=== PATIENT | female | born 1975 | race Two or more races ===

== ENCOUNTER → 2020-02-15 10:46 | Outpatient (BNVA) | payer BC, SELFPAY | PROVIDERS: PCP Internal Medicine; Referring Provider Internal Medicine; Visit Provider Physician Assistant | DX: Z76.89 Persons encountering health services in other specified circumstances (principal) ==

== ENCOUNTER 2021-07-30 13:03 | Outpatient (REF) | payer OTHER, SELFPAY ==
[2021-07-30 13:23] LABS: MANUAL DIFF FLAG NO
[2021-07-30 14:07] LABS: Basophils Percent Auto 0.6 % (0-2); Eosinophils Absolute Auto 0.1 X10*3/uL (0.0-0.4); Eosinophils Percent Auto 2.6 % (0-4); Hemoglobin 12.2 g/dl (12.0-16.0); Imm Gran Abs Auto 0.02 X10*3/uL (0.00-0.03); Imm Gran Pct Auto 0.4 % (0.0-0.4); Lymphocytes Absolute Auto 1.4 X10*3/uL (1.2-4.9); Lymphocytes Percent Auto 25.3 % (20-40); Mean Corpuscular HGB Conc 33.9 g/dl (31.0-35.0); Mean Corpuscular Hemoglobin 34.3 pg (27.0-33.0); Mean Corpuscular Volume 101.1 fL (80.0-98.0); Mean Platelet Volume 10.5 fL (9.4-12.3); Monocytes Absolute Auto 0.5 X10*3/uL (0.1-1.2); Monocytes Percent Auto 9.2 % (2-11); Neutrophils Absolute Auto 3.3 x10*3/uL (2.0-8.3); Neutrophils Percent Auto 61.9 % (45-73); Platelet Count 307 X10*3/uL (160-400); Red Blood Count 3.56 X10*6/uL (4.20-5.50); Red Cell Distribution Width 12.8 % (11.0-16.0); White Blood Count 5.3 X10*3/uL (4.8-10.8)
[2021-07-30 14:09] LABS: Appearance Urine CLEAR; Color Urine YELLOW; Glucose Urine UA NEG (NEG); Leukocyte Esterase Urine NEG (NEG); Nitrite Urine NEG (NEG); PH 5.5 (5.0-8.0); Specific Gravity - Urine >= 1.030 (1.005-1.025); UACC Culture Trigger NO; Urine Blood TRACE (NEG); Urine Ketones NEG (NEG); Urine Protein NEG (NEG-TRACE)
[2021-07-30 14:17] LABS: Squamous Epithelial Cell Urine TRACE /LPF
[2021-07-30 14:18] LABS: Bacteria Urine TRACE /LPF; RBC Urine 0-2 /HPF (0); WBC Urine 0-2 /HPF (0-4)
[2021-07-30 14:24] LABS: Alanine Aminotransferase 13 U/L (0-31); Alkaline Phosphatase 61 U/L (39-117); Anion Gap 13 (12-20); Aspartate Amino Transferase 20 U/L (5-31); Bilirubin Total 0.3 mg/dL (0.0-1.0); Blood Urea Nitrogen 11 mg/dL (9-16); C Reactive Protein 0.25 mg/dL (< or = 0.50); Calcium 8.9 mg/dL (8.4-10.2); Carbon Dioxide 23 mmol/L (22-29); Chloride 107 mmol/L (96-108); Estimated Glomerular Filt Rate > 60; Glucose Random 96 mg/dL (60-115); Potassium 4.2 mmol/L (3.3-5.1); Sodium 139 mmol/L (135-145)
[2021-07-30 14:45] LABS: TSH reflex Free T4 0.93 uIU/mL (0.32-4.0); Vitamin D 25-OH Total 16.3 ng/mL (>30)
[2021-07-30 14:53] LABS: Erythrocyte Sedimentation Rate 25 MM/HR (0-20)
[2021-08-01 05:11] LABS: Herpes Simplex Type 2 IgG 5.37 index
[2021-08-02 00:26] LABS: TS Negative Control Passed; TS Panel A 0; TS Panel B 0; TS Positive Control Passed; TSpotTB Negative (Negative)
[2021-08-06 22:46] LABS: HSV 1 IgM IFA Negative (Negative); HSV 2 IgM IFA Negative (Negative)
== END 2021-07-30 13:04 | disposition home or self-care (01) ==
LOC: HO.LAB 13:03
PROVIDERS: PCP Internal Medicine; Visit Provider Internal Medicine
DX: Z01.84 Encounter for antibody response examination (principal); R29.898 Other symptoms and signs involving the musculoskeletal system; M79.7 Fibromyalgia; E55.9 Vitamin D deficiency, unspecified; B00.9 Herpesviral infection, unspecified
CPT/HCPCS: 36415; 80053; 81001; 82306; 82550; 84443; 85025; 85652; 86140; 86481; 86695; 86696

== ENCOUNTER → 2021-08-06 11:56 | Outpatient (RCR) | payer BC, SELFPAY | END | disposition home or self-care (01) | LOC: HO.PTCHIC 01-05 10:08 | PROVIDERS: PCP Internal Medicine; Visit Provider Internal Medicine | DX: M51.36 Other intervertebral disc degeneration, lumbar region (principal) | CPT/HCPCS: 97110; 97140; 97161; 97530 ==

== ENCOUNTER 2022-09-17 14:48 | Outpatient (REF) | payer OTHER, SELFPAY ==
--- NOTE | ~2022-09-17 | XR_ITS ---
EXAMINATION: XR FOOT, RIGHT CLINICAL INFORMATION: Pain in the right foot COMPARISON: None available. TECHNIQUE: AP, lateral, and oblique views of the right foot. FINDINGS: There is hallux valgus angulation of the great toe. No acute osseous abnormality. No fracture or dislocation. Joint spaces are normal. No soft tissue abnormality. XR/XR foot RT min 3V IMPRESSION: Normal right foot.
== END 2022-09-17 14:49 | disposition home or self-care (01) ==
LOC: HO.HMGCX 14:48
PROVIDERS: Visit Provider Physician Assistant
DX: M79.671 Pain in right foot (principal)
CPT/HCPCS: 73630

== ENCOUNTER 2023-05-17 10:45 | Outpatient (AMB) | payer SELFPAY ==
[2023-05-17 10:54] VITALS: BP 122/80; PULSE 77; O2SAT 96; BMI 27.4
--- NOTE | 2023-05-17 10:54 | A.OFFPC_ITS ---
Vital Signs 05/17/23 10:54 Height 5 ft 3 in Weight 154 lb 8 oz BMI 27.4 BP 122/80 Blood Pressure Location Lt brachial Position Sitting Pulse 77 Pulse Source Pulse Oximeter Pulse Oximetry (%) 96 Oxygen Delivery Method Room Air Intake Visit Reasons: follow up anxiety Poke In Required: No Accompanied by: Self / Same As Patient Allergies buspirone Allergy (Unknown, Verified 05/17/23 11:13) suicidal ideation sertraline Allergy (Unknown, Verified 05/17/23 11:13) nerve pain amoxicillin Adverse Reaction (Unknown, Verified 05/17/23 11:13) rash, nauseous Fish Allergy (Unknown, Uncoded 05/17/23 11:13) itchy throat Medication List - Last Reconciled 05/17/23 by Damir Alex MD cholecalciferol (vitamin D3) 100 mcg PO DAILY clonazepam 0.5 mg (1/2 x 1 mg) PO BID PRN 30 days fluticasone propionate 50 mcg/actuation 2 sprays intranasal DAILY PRN 30 days hydroxyzine HCl 10 mg PO BEDTIME PRN loperamide 2 mg PO QID PRN 30 days olanzapine 1.25 mg PO BEDTIME PRN ondansetron 4 mg PO Q6H PRN tizanidine 4 mg PO TID PRN valacyclovir 1,000 mg PO DAILY Tobacco use date assessed: 05/17/23 Dental Screening Dental Screen Date: 05/17/23 Did you have a dental visit in the last 12 months?: Yes Did you have a dental problem in the last 6 months where you did not have access to dental care?: No Was dental information given to patient?: Patient has dentist HPI follow up anxiety HPI Details Patient comes in today for her follow up visit - was last seen a year ago on 05/15/2023 States that she is still experiencing anxiety often She has not seen a psychiatrist for her issues for a while now 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 [facility] so she did not want to seek therapy and counseling and see the psychiatrist here for obvious reasons States that she tried to see a psychiatrist down in [place] but things did not work out She is now working at a new job in [place] where she was originally just seeing patient on an outpatient basis and states that things were working well for her until recently when her supervisor data processing has been insisting that she starts doing in-home therapy as well, which she is reportedly finding to be stressful She is also currently feeling anxious and stressed out about other things, including her attempts to look for an apartment where she can move into States that she prefers to not taking any medications more than the ones that she is already on as she's had problems tolerating a few of them in the past - states that she is only taking half a tablet of her Olanzapine and her Hydroxyzine only as needed as their original prescribed dose were also too much for her to tolerate She prefers to try herbal supplements and homeopathic remedies over prescription meds but so far has not yet been able to find something that works consistently for her States that she is happy to stay on what she is currently on and does not want to get any additional Rx at this time She denies any headaches or dizziness Denies any chest pains, no SOB No nausea/vomiting, no abdominal pain No change in bowel habits noted Adds that she currently has no health insurance coverage (by choice) and paid byrd for her visit today [facility] Medical History (Updated 05/17/23 @ 13:12 by Damir Alex MD) Vitamin D deficiency Posttraumatic stress disorder PMDD (premenstrual dysphoric disorder) Anxiety Overweight (BMI 25.0-29.9) Genital herpes Fibromyalgia Neck pain Diarrhea Chronic pain Surgical History History of episiotomy Family History Father No problems noted. Mother No problems noted. Maternal Grandmother CVD (cardiovascular disease) Paternal Grandmother Breast cancer Family/Other FH: mental illness Other Mental health disorder Social History Housing: Apartment Alcohol intake: current Alcohol intake frequency: holidays/special occasions only Patient Tobacco Use Status: Never used Tobacco e-Cigarette/Vaping Use: Never Used Second Hand Smoke Exposure: No Substance Use Type: Marijuana service: No Current occupational status: employed Current occupation: psychotherapist Cognitive needs: No Hearing needs: No Vision needs: Yes (glasses) Questionnaire PHQ-9 Over the last 2 weeks, how often have you been bothered by any of the following problems? 1. Little interest or pleasure in doing things: not at all 2. Feeling down, depressed, or hopeless: not at all (on medication) 3. Trouble falling or staying asleep, or sleeping too much: not at all 4. Feeling tired or having little energy: not at all 5. Poor appetite or overeating: not at all 6. Feeling bad about yourself - or that you are a failure or have let yourself or your family down: not at all 7. Trouble concentrating on things, such as reading the newspaper or watching television: not at all 8. Moving or speaking so slowly that other people could have noticed. Or the opposite - being so fidgety or restless that you have been moving around a lot more than usual: not at all 9. Thoughts that you would be better off or of hurting yourself in some way: not at all Total score: 0 Depression Screening Interpretation: Negative (is on Rx) Depression Screening Done: Yes 97487 - PHQ-9 Billing: Yes Source: Developed by Drs. Yuniel Knapp, Oneyda Horn, Dell Camarena and colleagues, with an educational eleni from [employer] Thrive Questionnaire Date Thrive assessed: 05/17/23 I am a: Patient What is your living situation today?: I have a steady place to live Within the past 12 months, did the food you bought not last and you didn't have the money to get more?: Never true Within the past 12 months, did you worry whether your food would run out before you got money to buy more?: Never true Do you have trouble paying for medicines?: No Do you have trouble getting transportation to medical appointments?: No Do you have trouble paying your heating and electricity bill?: No Do you have trouble taking care of your child, family member or friend?: No Do you have trouble with day-to-day activities such as bathing, preparing meals, shopping, managing finances, etc.?: No Are you currently unemployed and looking for a job?: No Are you interested in more education?: No Please select the resources that you would like help with: None Currently or been in a relationship where the following occur: no concerns reported THRIVE Score: 0 AUDIT C Alcohol Use Questionnaire (AUDIT-C) 1. How often do you have a drink containing alcohol?: Monthly or less 2. How many drinks containing alcohol do you have on a typical day when you are drinking?: 1 or 2 3. How often do you have six or more drinks on one occasion?: Never Total Score: 1 Score Reviewed/Action Taken: Yes DAISY-7 AMB Questionnaire DAISY-7 Date DAISY - 7 assessed: 05/17/23 Feeling nervous, anxious, or on edge: 3 = Nearly every day Not being able to stop or control worryin = Nearly every day Worrying too much about different things: 3 = Nearly every day Trouble relaxin = Nearly every day Being so restless that it is hard to sit still: 0 = Not at all Becoming easily annoyed or irritable: 3 = Nearly every day Feeling afraid as if something awful might happen: 3 = Nearly every day Total DAISY-7 score (0-4 normal; 5-9 mild; 10-14 moderate; 15-21 severe): 18 Source: Developed by Drs. Yuniel Knapp, Oneyda Horn, Dell Camarena and colleagues, with an educational eleni from [employer] Review of Systems Const Reports difficulty sleeping, Reports fatigue, Denies fever(s) and Denies headache(s) (better controlled lately) ENT Denies dysphagia, Denies dizziness, Denies otalgia, Denies headache(s) (better controlled lately), Denies neck pain, Denies odynophagia and Denies sore throat Card Denies chest pain, Denies palpitations and Denies dyspnea Resp Denies cough, Denies dyspnea and Denies wheezing GI Denies abdominal pain, Denies constipation, Denies dysphagia, Denies heartburn, Denies diarrhea, Denies nausea, Denies odynophagia and Denies vomiting Denies difficulty voiding, Denies nocturia, Denies dysuria and Denies urinary urgency Musc Reports back pain (on and off), Denies arthralgias and Denies neck pain Skin/Breast Denies rash Neuro Denies dizziness and Denies headache(s) (better controlled lately) Psych Reports anxiety and Reports depression Endo Reports fatigue and Denies palpitations Aller/Immun Denies wheezing Physical exam (Primary Care) Vital Signs: Last Vital Signs Pulse 77 05/17/23 10:54 BP 122/80 05/17/23 10:54 Pulse Ox 96 05/17/23 10:54 Oxygen Delivery Method Room Air 05/17/23 10:54 BMI result Body Mass Index 27.4 Tobacco/Smoking Status: Tobacco use Status Tobacco use date assessed 05/17/23 05/17/23 11:08 Patient Tobacco Use Status Never used Tobacco 05/17/23 11:08 e-Cigarette/Vaping Use Never Used 05/17/23 11:08 PHQ-9: PHQ-9 Score PHQ-9: Total score 0 05/17/23 11:25 Depression Screening Interpretation: Negative (is on Rx) Thrive Assessment: Date of Thrive Assessment Date Thrive assessed 05/17/23 05/17/23 11:08 Currently or been in a relationship where the following occur: no concerns reported Const General: no acute distress and alert HENMT Ears: TM's normal bilaterally and EAC's normal Throat: Yes posterior oropharynx normal and Yes tonsils normal Neck Neck: Yes no lymphadenopathy and Yes supple Thyroid: Thyroid normal Resp Auscultation: clear to auscultation bilaterally, no rales and no wheezes Cardio Rate: regular rate Rhythm: regular rhythm Heart sounds: no murmurs GI Palpation (GI): Soft to palpation and nontender Auscultation: normal bowel sounds Back/Spine/Pelvis Cervical Spine: cervical muscular tenderness (bilateral) Extrem General: Yes no clubbing, cyanosis or edema Assessment and Plan Assessment & Plan (1) PMDD (premenstrual dysphoric disorder): Code(s): F32.81 - Premenstrual dysphoric disorder Plan: Continue Clonazepam 0.5 mg BID PRN, Olanzapine 1.25 mg Q HS She was previously referred to but is still currently NOT seeing psychiatry - s [facility] for details (2) Fibromyalgia: Code(s): M79.7 - Fibromyalgia Plan: She was on Duloxetine 30 mg 2 caps (60 mg) QD and Baclofen 10 mg TID PRN in the past but has not been taking these in a while now (by choice) Patient states that she has been seeing an alternative/homeopathic medicine s pecialist regularly for management of her fibromyalgia and related symptoms She is encouraged again on exercise and regular physical activity to help manage her fibromyalgia symptoms better (3) Chronic pain: Code(s): G89.29 - Other chronic pain Qualifiers: Chronic pain type: chronic pain syndrome Qualified Code(s): G89.4 - Chronic pain syndrome Plan: Was on Gabapentin 300 mg QD PRN, Baclofen 10 mg TID PRN and Lidocaine 5% patch QD PRN in the past but she also apparently stopped taking all of these at some point last year Adds that she smokes marijuana to help with her pain and anxiety and other symptoms - currently has a valid medical marijuana license (4) Vitamin D deficiency: Code(s): E55.9 - Vitamin D deficiency, unspecified Plan: Will start her on Vitamin D3 2000 units QD (5) Genital herpes: Code(s): A60.00 - Herpesviral infection of urogenital system, unspecified Qualifiers: Herpes simplex infection site: unspecified Qualified Code(s): A60.00 - Herpesviral infection of urogenital system, unspecified Plan: Continue Valacyclovir 1000 mg QD (6) Insomnia: Code(s): G47.00 - Insomnia, unspecified Qualifiers: Insomnia type: unspecified Qualified Code(s): G47.00 - Insomnia, unspecified Plan: Was started on Ramelteon 8 mg Q HS PRN a few months ago, per her request but she stopped taking these as well a while ago Sleep hygiene reinforced (7) Overweight (BMI 25.0-29.9): Code(s): E66.3 - Overweight Plan: Reinforced diet/exercise as tolerated/lose weight Plan Follow up in 6 months Medications: Changed From cholecalciferol (vitamin D3) 50 mcg PO DAILY 90 days 90 caps 3RF E55.9 - Vitamin D deficiency, unspecified To cholecalciferol (vitamin D3) 100 mcg PO DAILY E55.9 - Vitamin D deficiency, unspecified Coding Level of Care Code Est Pt Level 3 (73144) Diagnoses PMDD (premenstrual dysphoric disorder) F32.81 Fibromyalgia M79.7 Chronic pain syndrome G89.4 Chronic pain type: chronic pain syndrome Vitamin D deficiency E55.9 Genital herpes simplex, unspecified site A60.00 Herpes simplex infection site: unspecified Insomnia, unspecified type G47.00 Insomnia type: unspecified Overweight (BMI 25.0-29.9) E66.3
== END 2023-05-17 11:29 | disposition home or self-care (01) ==
PROVIDERS: PCP Internal Medicine; Visit Provider Internal Medicine
DX: F32.81 Premenstrual dysphoric disorder (principal); M79.7 Fibromyalgia; G89.4 Chronic pain syndrome; E55.9 Vitamin D deficiency, unspecified; A60.00 Herpesviral infection of urogenital system, unspecified; G47.00 Insomnia, unspecified; E66.3 Overweight
CPT/HCPCS: 99213

== ENCOUNTER 2023-11-02 15:43 | Outpatient (AMB) | payer SELFPAY ==
--- NOTE | 2023-11-02 15:48 | MHC.PC.OV ---
Vital Signs 11/02/23 15:50 Height 5 ft 3 in Weight 148 lb 2 oz BMI 26.2 BP 112/68 Blood Pressure Location Lt brachial Position Sitting Pulse 76 Pulse Source Pulse Oximeter Pulse Oximetry (%) 99 Oxygen Delivery Method Room Air Intake Visit Reasons: Cronic Stress Intake Note: Pt is here for chronic stress. 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 Accompanied by: Self / Same As Patient Allergies buspirone Allergy (Unknown, Verified 11/02/23 16:17) suicidal ideation sertraline Allergy (Unknown, Verified 11/02/23 16:17) nerve pain amoxicillin Adverse Reaction (Unknown, Verified 11/02/23 16:17) rash, nauseous Fish Allergy (Unknown, Uncoded 11/02/23 16:17) itchy throat Medication List - Last Reconciled 11/02/23 by Damir Alex MD cholecalciferol (vitamin D3) 100 mcg PO DAILY clonazepam 0.5 mg (1/2 x 1 mg) PO BID PRN 30 days fluticasone propionate 50 mcg/actuation 2 sprays intranasal DAILY PRN 30 days hydroxyzine HCl 10 mg PO BEDTIME PRN loperamide 2 mg PO QID PRN 30 days propranolol 10 mg PO BID tizanidine 4 mg PO TID PRN venlafaxine ER (Effexor XR) 37.5 mg PO BEDTIME Tobacco use date assessed: 05/17/23 Dental Screening Dental Screen Date: 05/17/23 HPI Cronic Stress HPI Details Patient comes in today for her follow up visit States that she is currently on FMLA leave - leave started on 10/07/23 and will last until 01/14/24, and she feels that this time off will allow her to be able to better deal with her increasing stress and anxiety She is currently taking her Clonazepam 0.5 mg BID and she tries to take it as sparingly as possible; is also on Venlafaxine but she requested to have it on the lowest 37.5 mg dose for now She is not seeing psychiatry - 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 of what she needs to do to address her issues and she does not feel like telling all of her problems to a stranger who really knows nothing about her States that she also does not have any health insurance coverage (by choice) and cannot afford to pay over $400 per hour to see a psychiatrist at this time Feels that she is able to cope with her problems on her own and she just needs us to continue her on her current Rx for now She has also been having trouble sleeping at night for a while now and is requesting for a trial Rx of generic Lunesta 1 mg Also needs a couple of her Rx refilled She denies any increased headaches or dizziness lately Denies any chest pains, no SOB No nausea/vomiting, no abdominal pain No change in bowel habits noted [facility] Medical History (Updated 11/06/23 @ 02:17 by Damir Alex MD) Allergic rhinitis Vitamin D deficiency Posttraumatic stress disorder PMDD (premenstrual dysphoric disorder) Anxiety Overweight (BMI 25.0-29.9) Genital herpes Fibromyalgia Neck pain Diarrhea Chronic pain Surgical History History of episiotomy Family History Father No problems noted. Mother No problems noted. Maternal Grandmother CVD (cardiovascular disease) Paternal Grandmother Breast cancer Family/Other FH: mental illness Other Mental health disorder Social History Housing: Apartment Alcohol intake: current Alcohol intake frequency: holidays/special occasions only Patient Tobacco Use Status: Never used Tobacco e-Cigarette/Vaping Use: Never Used Second Hand Smoke Exposure: No Substance Use Type: Marijuana service: No Current occupational status: employed Current occupation: psychotherapist Cognitive needs: No Hearing needs: No Vision needs: Yes (glasses) Questionnaire Thrive Questionnaire Date Thrive assessed: 05/17/23 DAISY-7 AMB Questionnaire DAISY-7 Date DAISY - 7 assessed: 05/17/23 Source: Developed by Drs. Yuniel Knapp, Oneyda Horn, Dell Camarena and colleagues, with an educational eleni from [employer]. Review of Systems Const Denies chills, Reports difficulty sleeping, Reports fatigue, Denies fever(s) and Denies headache(s) (better controlled ) ENT Denies dysphagia, Denies dizziness, Denies otalgia, Denies headache(s) (better controlled ), Denies neck pain, Denies odynophagia and Denies sore throat Card Denies chest pain, Denies palpitations and Denies dyspnea Resp Denies cough, Denies dyspnea and Denies wheezing GI Denies abdominal pain, Denies constipation, Denies dysphagia, Denies heartburn, Denies diarrhea, Denies nausea, Denies odynophagia and Denies vomiting Denies difficulty voiding, Denies nocturia, Denies dysuria and Denies urinary urgency Musc Reports back pain (on and off), Denies arthralgias and Denies neck pain Skin/Breast Denies rash Neuro Denies behavioral changes, Denies dizziness and Denies headache(s) (better controlled ) Psych Reports anxiety, Denies behavioral changes, Reports depression and Denies panic attacks Endo Reports fatigue and Denies palpitations Aller/Immun Denies wheezing Physical exam (Primary Care) Vital Signs: Last Vital Signs Pulse 76 11/02/23 15:50 BP 112/68 11/02/23 15:50 Pulse Ox 99 11/02/23 15:50 Oxygen Delivery Method Room Air 11/02/23 15:50 BMI result Body Mass Index 26.2 Tobacco/Smoking Status: Tobacco use Status Tobacco use date assessed 05/17/23 11/02/23 15:50 Patient Tobacco Use Status Never used Tobacco 11/02/23 15:50 e-Cigarette/Vaping Use Never Used 11/02/23 15:50 Thrive Assessment: Date of Thrive Assessment Date Thrive assessed 05/17/23 11/02/23 15:50 Const General: no acute distress and alert HENMT Ears: TM's normal bilaterally and EAC's normal Throat: Yes posterior oropharynx normal and Yes tonsils normal Neck Neck: Yes no lymphadenopathy and Yes supple Thyroid: Thyroid normal Resp Auscultation: clear to auscultation bilaterally, no rales and no wheezes Cardio Rate: regular rate Rhythm: regular rhythm Heart sounds: no murmurs GI Palpation (GI): Soft to palpation and nontender Auscultation: normal bowel sounds Back/Spine/Pelvis Cervical Spine: cervical muscular tenderness (bilateral) Thoracic/Lumbar Spine: No lumbar spinal tenderness Extrem General: Yes no clubbing, cyanosis or edema Assessment and Plan Assessment & Plan (1) Fibromyalgia: Code(s): M79.7 - Fibromyalgia Plan: She is again encouraged to stay active and exercise regularly to help her manage her fibromyalgia symptoms better Continue Tizanidine 4 mg TID PRN (2) Vitamin D deficiency: Code(s): E55.9 - Vitamin D deficiency, unspecified Plan: Continue Vitamin D3 1000 units QD Will have her get her labs and fasting lipids done in 4 months for follow up - patient is aware that these will cost her [id number] if she still does not have any insurance coverage then when she gets these done (3) Allergic rhinitis: Code(s): J30.9 - Allergic rhinitis, unspecified Qualifiers: Allergic rhinitis trigger: unspecified Allergic rhinitis seasonality: unspecified Qualified Code(s): J30.9 - Allergic rhinitis, unspecified Plan: Continue Fluticasone 50 mcg nasal spray QD PRN (4) Insomnia: Code(s): G47.00 - Insomnia, unspecified Qualifiers: Insomnia type: unspecified Qualified Code(s): G47.00 - Insomnia, unspecified Plan: She has taken several Rx in the past unsuccessfully and is requesting for a trial Rx for low dose Eszopicline to help her sleep at night Sleep hygiene reinforced Will try her on Eszopiclone 1 mg Q HS PRN (5) Posttraumatic stress disorder: Code(s): F43.10 - Post-traumatic stress disorder, unspecified Plan: Continue Venlafaxine ER 37.5 mg QD She has refused to see psychiatry, partly because she has no insurance coverage and adds that she does like talking to strangers who know nothing about her about her personal issues even though 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 Panel Fast 4 Months E78.00 - Pure hypercholesterolemia, unspecified Lipid Panel 4 Months E78.00 - Pure hypercholesterolemia, unspecified IRON PROFILE 4 Months D50.9 - Iron deficiency anemia, unspecified Complete Blood Count Auto Diff 4 Months D64.9 - Anemia, unspecified TSH reflex Free T4 4 Months E78.00 - Pure hypercholesterolemia, unspecified UA CC w/rflx Micro + Cult 4 Months R30.0 - Dysuria Magnesium 4 Months E83.42 - Hypomagnesemia Vitamin D 25-OH Total 4 Months E55.9 - Vitamin D deficiency, unspecified Vitamin B12 and Folate 4 Months E53.8 - Deficiency of other specified B group vitamins Medications: New eszopiclone 1 mg PO BEDTIME PRN 30 tabs 0RF insomnia 30 days Changed From hydroxyzine HCl 10 mg PO BEDTIME PRN To hydroxyzine HCl 10 mg PO BEDTIME PRN 30 tabs 1RF anxiety 30 days Refilled clonazepam 0.5 mg (1/2 x 1 mg) PO BID PRN 30 tabs 0RF anxiety 30 days Coding Level of Care Code Est Pt Level 3 (36179) Diagnoses Fibromyalgia M79.7 Vitamin D deficiency E55.9 Allergic rhinitis, unspecified seasonality, unspecified trigger J30.9 Allergic rhinitis trigger: unspecified Allergic rhinitis seasonality: unspecified Insomnia, unspecified type G47.00 Insomnia type: unspecified Posttraumatic stress disorder F43.10 Anxiety F41.9 Overweight (BMI 25.0-29.9) E66.3
[2023-11-02 15:50] VITALS: BP 112/68; PULSE 76; O2SAT 99; BMI 26.2
== END 2023-11-02 16:33 | disposition home or self-care (01) ==
PROVIDERS: PCP Internal Medicine; Visit Provider Internal Medicine
DX: M79.7 Fibromyalgia (principal); E55.9 Vitamin D deficiency, unspecified; J30.9 Allergic rhinitis, unspecified; G47.00 Insomnia, unspecified; F43.10 Post-traumatic stress disorder, unspecified; F41.9 Anxiety disorder, unspecified; E66.3 Overweight
CPT/HCPCS: 99213